=== PATIENT | female | born 1995 | race Caucasian/White ===

== ENCOUNTER 2019-03-03 10:20 | Emergency (ER) | payer MEDICAID, OTHER ==
[~2019-03-03] VITALS: Ht 154.9 cm; Wt 84.1 kg
[~2019-03-03 10:20] MED LIST: PNV1TABL11
[2019-03-03 10:22] VITALS: BP 115/72
[2019-03-03] MEDS ORDERED: DIPH,PERTUSS(ACELL),TET VAC/PF 0.5 ML IM-VACC ONE ×2 (10:30→10:58)
[2019-03-03] MEDS ORDERED: LIDOCAINE-MPF 1%, 5ML INFIL ONE (10:30)
[2019-03-03] MEDS ORDERED: LIDOCAINE-MPF 1%, 5ML ONE (10:35)
[2019-03-03] MEDS ORDERED: NEOSPORIN OINT. PKT 1 PACKET ONE (10:58)
== END 2019-03-03 11:27 | disposition home or self-care (01) ==
LOC: ED 11:19
DX: S61.213A Laceration without foreign body of left middle finger without damage to nail, initial encounter (principal); X58.XXXA Exposure to other specified factors, initial encounter; Y93.89 Activity, other specified; Y92.69 Other specified industrial and construction area as the place of occurrence of the external cause; Y99.0 Civilian activity done for income or pay
CPT/HCPCS: 12001; 90471; 90715; 99283

== ENCOUNTER 2019-05-20 23:55 | Emergency (ER) | payer OTHER ==
[~2019-05-20] VITALS: Ht 154.9 cm; Wt 88.8 kg
--- NOTE | 2019-05-21 00:28 | NUR ---
KELVIN TRIAGED PT
[2019-05-21] MEDS ORDERED: ACETAMINOPHEN 500 MG TABLET PO ONE (00:30)
[2019-05-21] MEDS ORDERED: ONDANSETRON ODT 4 MG PO ONE (00:30)
[2019-05-21] MEDS ORDERED: ONDANSETRON ODT 4 MG ONE (00:46)
[2019-05-21] MEDS ORDERED: ACETAMINOPHEN 500 MG TABLET ONE (00:46)
[2019-05-21 01:44] VITALS: BP 109/56
== END 2019-05-21 02:29 | disposition home or self-care (01) ==
LOC: ED 05-21 00:32
DX: J06.9 Acute upper respiratory infection, unspecified (principal); R11.0 Nausea; R50.9 Fever, unspecified; R51 Headache
CPT/HCPCS: 71045; 99283; Q0162

== ENCOUNTER 2019-05-23 11:24 | Emergency (ER) | payer OTHER ==
[~2019-05-23] VITALS: Ht 154.9 cm; Wt 86.4 kg
[2019-05-23 11:27] VITALS: BP 97/71
[2019-05-23] MEDS ORDERED: KETOROLAC 30 MG/1 ML IM ONE (12:00)
[2019-05-23] MEDS ORDERED: ONDANSETRON ODT 4 MG PO ONE (12:00)
--- NOTE | 2019-05-23 12:01 | NUR ---
RECEIVED REPORT FROM AC PUCKETT. ASSUMING CARE AT THIS TIME.
[2019-05-23] MEDS ORDERED: KETOROLAC 30 MG/1 ML ONE (12:09)
[2019-05-23] MEDS ORDERED: ONDANSETRON ODT 4 MG ONE (12:10)
--- NOTE | 2019-05-23 12:25 | NUR ---
PT PROVIDED URINE SAMPLE. UA COLLECTED AND SENT TO LAB. MEDS ADMIN PER APR. LAB AT BEDSIDE.
[2019-05-23 12:36] LABS: BASOPHILS # (AUTO) 0.05 x10^3/uL (0-0.1); BASOPHILS % (AUTO) 1 % (0-1); EOSINOPHILS # (AUTO) 0.02 x10^3/uL (0-0.4); EOSINOPHILS % (AUTO) 0 % (1-7); LYMPHOCYTES # (AUTO) 2.12 x10^3/uL (1-3.4); LYMPHOCYTES % (AUTO) 23 % (22-44); MD NO; MEAN CORPUSCULAR HEMOGLOBIN 29.3 pg (27.0-34.8); MEAN CORPUSCULAR HGB CONC 33.8 g/dL (32.4-35.8); MEAN CORPUSCULAR VOLUME 86.9 fL (80-100); MEAN PLATELET VOLUME 7.1 fL (7.4-10.4); MONOCYTES # (AUTO) 0.73 x10^3/uL (0.2-0.8); MONOCYTES % (AUTO) 8 % (2-9); NEUTROPHILS # (AUTO) 6.16 x10^3/uL (1.8-6.8); NEUTROPHILS % (AUTO) 68 % (42-75); PLATELET COUNT 366 x10^3/uL (130-400)
[2019-05-23 12:47] LABS: MICROSCOPIC INDICATED
[2019-05-23 12:49] LABS: ANION GAP 8 mmol/L (5-15); CALCIUM 9.3 mg/dL (8.5-10.1); CHLORIDE 102 mmol/L (98-107); CREATININE 0.68 mg/dL (0.55-1.02)
--- NOTE | 2019-05-23 12:57 | NUR ---
PT HAS BEEN SIPPING ON PROVIDED WATER. PT HAS TOLERATED WELL, NO VOMITING. ALL RESULTS ARE BACK AT THIS TIME. CHART UP FOR RECHECK.
--- NOTE | 2019-05-23 13:17 | NUR ---
PROVIDER AT BEDSIDE TO UPDATE PT ON POC.
== END 2019-05-23 13:47 | disposition home or self-care (01) ==
LOC: ED 12:04
DX: B34.9 Viral infection, unspecified (principal); R07.89 Other chest pain; R11.2 Nausea with vomiting, unspecified
CPT/HCPCS: 36415; 80048; 81001; 85025; 96372; 99283; J1885; Q0162

== ENCOUNTER 2019-12-27 12:58 | Emergency (ER) | payer OTHER ==
[~2019-12-27] VITALS: Ht 157.5 cm; Wt 85.5 kg
[2019-12-27 14:00] LABS: BASOPHILS % (AUTO) 1 % (0-1); EOSINOPHILS % (AUTO) 1 % (1-7); LYMPHOCYTES % (AUTO) 42 % (22-44); MEAN CORPUSCULAR HEMOGLOBIN 29.4 pg (27.0-34.8); MEAN CORPUSCULAR HGB CONC 33.4 g/dL (32.4-35.8); MEAN PLATELET VOLUME 7.2 fL (7.4-10.4); MONOCYTES % (AUTO) 8 % (2-9); NEUTROPHILS % (AUTO) 49 % (42-75); PLATELET COUNT 384 x10^3/uL (130-400); RED BLOOD COUNT 4.83 x10^6/uL (3.82-5.3); RED CELL DISTRIBUTION WIDTH 13.2 % (9.6-15.2)
[2019-12-27 14:01] LABS: ALBUMIN 4.2 g/dL (3.4-5.0); ANION GAP 7 mmol/L (5-15); CHLORIDE 104 mmol/L (98-107)
[2019-12-27 14:06] LABS: ALANINE AMINOTRANSFERASE 18 U/L (12-78); ALKALINE PHOSPHATASE 69 U/L (45-117); BILIRUBIN,TOTAL 0.6 mg/dL (0.2-1.0); CREATININE 0.71 mg/dL (0.55-1.02)
--- NOTE | 2019-12-27 14:10 | NUR ---
PATIENT ARRIVES WITH RED BLOOD IN STOOL THAT BEGAN DEC 06. REPORTS NO CONSTIPATION. NO DIARREA.
[2019-12-27 14:15] LABS: MD NO
[2019-12-27] MEDS ORDERED: PHEN37.53 PO (14:15)
[2019-12-27 14:38] LABS: HCG UR SG 1.036 (1.003-1.030)
[2019-12-27 14:43] LABS: MICROSCOPIC INDICATED
--- NOTE | 2019-12-27 15:06 | NUR ---
STAND BY ASSIST RECTAL EXAM WITH GROUSE, NO COMPLICATIONS.
[2019-12-27 15:47] VITALS: BP 123/78
== END 2019-12-27 16:21 | disposition home or self-care (01) ==
LOC: ED 15:06
DX: K92.2 Gastrointestinal hemorrhage, unspecified (principal); K59.00 Constipation, unspecified
CPT/HCPCS: 36415; 80053; 81001; 81025; 85025; 87086; 99283

== ENCOUNTER 2020-02-03 01:52 | Emergency (ER) | payer OTHER ==
[~2020-02-03] VITALS: Ht 154.9 cm; Wt 85.0 kg
[~2020-02-03 01:52] MED LIST changes: +PHEN37.53 PO
[2020-02-03 02:38] LABS: MICROSCOPIC INDICATED
--- NOTE | 2020-02-03 02:47 | NUR ---
pt back from imaging
[2020-02-03 03:03] LABS: BASOPHILS % (AUTO) 1 % (0-1); EOSINOPHILS % (AUTO) 2 % (1-7); LYMPHOCYTES % (AUTO) 50 % (22-44); MEAN CORPUSCULAR HEMOGLOBIN 29.3 pg (27.0-34.8); MEAN CORPUSCULAR HGB CONC 33.2 g/dL (32.4-35.8); MONOCYTES % (AUTO) 10 % (2-9); NEUTROPHILS % (AUTO) 38 % (42-75); PLATELET COUNT 398 x10^3/uL (130-400); RED BLOOD COUNT 4.43 x10^6/uL (3.82-5.3)
[2020-02-03 03:08] LABS: MD NO
[2020-02-03 03:10] LABS: ALANINE AMINOTRANSFERASE 27 U/L (12-78); ALBUMIN 3.4 g/dL (3.4-5.0); ANION GAP 5 mmol/L (5-15); CALCIUM 8.7 mg/dL (8.5-10.1); CHLORIDE 110 mmol/L (98-107)
[2020-02-03 03:14] LABS: ALKALINE PHOSPHATASE 76 U/L (45-117); BILIRUBIN,TOTAL 0.2 mg/dL (0.2-1.0); TOTAL PROTEIN 6.9 g/dL (6.4-8.2)
[2020-02-03 04:12] VITALS: BP 113/84
== END 2020-02-03 04:14 | disposition home or self-care (01) ==
LOC: ED 03:40
DX: O03.9 Complete or unspecified spontaneous abortion without complication (principal)
CPT/HCPCS: 36415; 76801; 80053; 81001; 84702; 85025; 86901; 99284

== ENCOUNTER 2020-10-24 08:59 | Emergency (ER) | payer OTHER ==
[~2020-10-24] VITALS: Ht 154.9 cm; Wt 83.9 kg
[2020-10-24 09:51] LABS: MICROSCOPIC INDICATED
[2020-10-24] MEDS ORDERED: FAMOTIDINE 20 MG/2 ML ONE (10:56)
[2020-10-24] MEDS ORDERED: ONDANSETRON 2MG/ML, 2ML ONE (10:56)
[2020-10-24] MEDS ORDERED: ONDANSETRON 2MG/ML, 2ML IVPush ONE (11:00)
[2020-10-24] MEDS ORDERED: SODIUM CHLORIDE FLUSH 10ML SYR IVF ONE (11:00)
[2020-10-24] MEDS ORDERED: SODIUM CHLORIDE 0.9% 1,000ML IVBOLUS ONE (11:00)
[2020-10-24] MEDS ORDERED: FAMOTIDINE 20 MG/2 ML IVPush ONE (11:00)
[2020-10-24 11:41] LABS: BASOPHILS % (AUTO) 0 % (0-1); EOSINOPHILS % (AUTO) 0 % (1-7); LYMPHOCYTES % (AUTO) 17 % (22-44); MEAN CORPUSCULAR HEMOGLOBIN 28.9 pg (27.0-34.8); MEAN CORPUSCULAR HGB CONC 33.5 g/dL (32.4-35.8); MEAN PLATELET VOLUME 7.3 fL (7.4-10.4); MONOCYTES % (AUTO) 6 % (2-9); NEUTROPHILS % (AUTO) 77 % (42-75); PLATELET COUNT 304 x10^3/uL (130-400); RED BLOOD COUNT 4.42 x10^6/uL (3.82-5.3); RED CELL DISTRIBUTION WIDTH 13.1 % (9.6-15.2)
[2020-10-24 11:51] LABS: ALANINE AMINOTRANSFERASE 17 U/L (12-78); ANION GAP 9 mmol/L (5-15); CALCIUM 8.5 mg/dL (8.5-10.1); CHLORIDE 107 mmol/L (98-107); CREATININE 0.38 mg/dL (0.55-1.02)
[2020-10-24 11:54] LABS: ALKALINE PHOSPHATASE 55 U/L (45-117); BILIRUBIN,TOTAL 0.3 mg/dL (0.2-1.0); TOTAL PROTEIN 7.1 g/dL (6.4-8.2)
[2020-10-24] MEDS ORDERED: ACETAMINOPHEN 325 MG TABLET ONE (12:24)
[2020-10-24] MEDS ORDERED: ACETAMINOPHEN 325 MG TABLET PO ONE (12:30)
[2020-10-24] MEDS ORDERED: COVID-19 VACC,MRNA(MODERNA)/PF 100 MCG/0.5ML IM-VACC ONE (15:00)
[2020-10-24] MEDS ORDERED: COVID-19 VAC,AD26(JANSSEN)/PF 0.5ML IM-VACC ONE (15:30)
[2020-10-24 16:30] VITALS: BP 110/56
== END 2020-10-24 16:32 | disposition home or self-care (01) ==
LOC: ED 12:17
DX: O23.12 Infections of bladder in pregnancy, second trimester (principal); O21.8 Other vomiting complicating pregnancy; Z20.822 Contact with and (suspected) exposure to COVID-19; Z3A.15 15 weeks gestation of pregnancy; Z23 Encounter for immunization
CPT/HCPCS: 0031A; 36415; 80053; 81001; 85025; 87081; 87086; 87880; 91303; 96361; 96374; 96375; 99285; J2405; J7030; U0003; U0005